=== PATIENT | female | born 1945 | race Caucasian/White ===

== ENCOUNTER → 2017-02-08 | Outpatient (CLI) | payer OTHER ==
--- NOTE | 2017-02-09 09:33 | RAD ---
EXAM DESCRIPTION: Knee,Left Complete CLINICAL HISTORY: 71 years, Female, KNEE PAIN COMPARISON: None. FINDINGS: No fracture or dislocation. Near complete loss of the patellofemoral joint space with lateral spurring. Moderately severe narrowing laterally with spurring and slight lateral subluxation. Medial compartment shows slight narrowing. No clearly seen joint effusion. Prepatellar soft tissue swelling IMPRESSION: No fracture or dislocation. Advanced arthritic change particularly patellofemoral joint space and laterally Electronically signed by: Mikal Oneill MD 02/09/2017 9:33 AM CDT
== END | disposition home or self-care (01) ==
LOC: RAD 09:59
PROVIDERS: ATTEND Orthopaedic Surgery
DX: M25.562 Pain in left knee (principal); M25.561 Pain in right knee; M25.551 Pain in right hip; M25.552 Pain in left hip

== ENCOUNTER → 2017-02-23 | Outpatient (CLI) | payer OTHER ==
--- NOTE | 2017-02-24 09:42 | MRI ---
EXAM DESCRIPTION: MR KNEE WITHOUT IV CONTRAST CLINICAL HISTORY: Right knee pain TECHNIQUE: Multiplanar, multisequence MR images of the right knee were obtained. FINDINGS: ACL and PCL are intact. Oblique undersurface tear of the posterior horn of the medial meniscus, best seen on sagittal images seven and eight. There is also a macerated multidirectional tear of the body of the medial meniscus with mild meniscal extrusion. There is marked bone marrow edema seen throughout the medial femoral condyle with mild subchondral edema also noted within the peripheral medial tibial plateau. There is a small region of subchondral sclerosis measuring 1.0 x 0.4 cm on coronal image 16. This is compatible with a small region of osteochondral insufficiency fracture versus osteonecrosis. Overlying cartilage demonstrates moderate grade cartilage loss, predominantly on image 18 and 17. There is myxoid degeneration of the anterior horn of the lateral meniscus without discrete tear. There is mild cartilage heterogeneity and fibrillation in the lateral compartment without full-thickness defect. Lateral collateral ligamentous complex is intact. Patellofemoral extensor mechanism is unremarkable. Patchy regions of subchondral cystic change and edema seen within the central lateral patellar facet, patellar apex, and medial patellar facet compatible full-thickness chondrosis. Trochlear cartilage is preserved. Small joint effusion with decompressing Bakers cyst. There is also diffuse periarticular edema about the joint capsule yet no synovitis or evidence of capsulitis. Bone marrow is otherwise unremarkable. IMPRESSION: 1. Complex, multidirectional tear of the posterior horn and body of the medial meniscus with resultant moderate grade chondrosis in the medial compartment. There is a small stable osteochondral lesion within the weightbearing medial tibial plateau without cortical depression or fluid cleft to suggest instability. 2. 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 3. 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 4. Periarticular edema with small joint effusion and decompressing small Albright's cyst. Electronically signed by: Kevin Ling MD 02/24/2017 9:41 AM CDT
== END | disposition home or self-care (01) ==
LOC: MRI 09:17
PROVIDERS: ATTEND Family Medicine
DX: M25.561 Pain in right knee (principal)

== ENCOUNTER → 2017-07-31 | Outpatient (CLI) | payer OTHER | END | disposition home or self-care (01) | LOC: GMAH 10:25 | PROVIDERS: ATTEND Family Medicine | DX: E78.2 Mixed hyperlipidemia (principal) ==

== ENCOUNTER → 2017-08-02 | Outpatient (CLI) | payer OTHER ==
--- NOTE | 2017-08-06 14:19 | MAM ---
EXAM DESCRIPTION: 3D Screening BILATERAL : Digital Mammography. CLINICAL HISTORY: 72 years Female SCREENING . No complaints. No family history of breast cancer. Postmenopausal. No HRT. COMPARISON: 2-D digital screening bilateral study 06/20/2016 and 12/10/2009. Report from prior examination also reviewed. TECHNIQUE: Bilateral CC and MLO projection full-field images, 3-D tomosynthesis digital mammographic technique. Also bilateral synthesized CC/ MLO full-field images. CAD not utilized. FINDINGS: The breast parenchymal density pattern is: Scattered areas of fibroglandular density. No skin thickening or nipple retraction . Right axillary lymph node. Bilateral vascular calcifications. Bilateral solitary microcalcifications. No focal, stellate mass or density, focal asymmetry , and no suspicious microcalcifications laterally. Stable mammograms compared to prior studies, taking into account differences in mammographic technique IMPRESSION: BI-RADS CATEGORY: 2 - BENIGN FINDINGS. FOLLOW UP: Routine digital bilateral screening, one year interval from July 2017. Written communication explaining the IMPRESSION and follow-up, will be mailed to the patient and referring health care provider. According to the [employer], yearly mammograms are recommended starting at age 40 and continuing as long as a woman is in good health. Any breast change noted on a breast self-exam should be reported promptly to the patient's healthcare provider. Breast MRI is recommended for women with an approximately 20-25% or greater lifetime risk of breast cancer, including women with a strong family history of breast or ovarian cancer and women who have been treated for Hodgkin's disease. A negative mammographic report should not delay tissue diagnosis in patients with significant clinical history or physical findings. Extremely dense breast tissue limits the sensitivity of digital mammography. Electronically signed by: Israel Milton MD 08/06/2017 2:18 PM CDT
== END | disposition home or self-care (01) ==
LOC: MAMMO 14:53
PROVIDERS: ATTEND Family Medicine
DX: Z12.31 Encounter for screening mammogram for malignant neoplasm of breast (principal)
CPT/HCPCS: 77063; G0202

== ENCOUNTER → 2017-08-03 | Outpatient (CLI) | payer OTHER | END | disposition home or self-care (01) | LOC: GMAH 12:48 | PROVIDERS: ATTEND Family Medicine | DX: N30.00 Acute cystitis without hematuria (principal) ==

== ENCOUNTER → 2018-01-15 | Outpatient (CLI) | payer OTHER ==
--- NOTE | 2018-01-15 17:07 | CT ---
EXAM DESCRIPTION: Abdoment/Pelvis w/o Contrast: Computed Tomography. CLINICAL HISTORY: SLOW TRANSIT CONSTIPATION COMPARISON: None. TECHNIQUE: Spiral-axial scans at i.0 mm intervals through the abdomen and pelvis, without nonionic IV contrast. No oral contrast. Coronal and sagittal 2.0 mm reconstructions. No delayed scans. Total Exam DLP: 50 mGy-cm. This exam was performed according to our departmental dose-optimization program which includes automated exposure control, adjustment of the mA and/or kV according to patient size and/or use of iterative reconstruction technique; to reduce radiation dose to as low as reasonably achievable (ALARA). FINDINGS: Lung bases and pleura: Negative. Liver, Stomach, Spleen, Adrenal Glands: Calcification in the subcapsular posterior right hepatic lobe. Long axis of the right lobe is 19.4 cm. Splenic calcifications. Stomach is negative. 2 x 3 cm mass left adrenal gland. Hounsfield density +24. Normal size right adrenal gland. Pancreas, Gallbladder, Ducts: Vascular calcifications abutting the pancreas. Multiple rim calcified stones in the gallbladder the largest approximately 3 cm in diameter. Common bile duct nondilated. Kidneys and Ureters: 2 cm round low-density object with well-demarcated borders and Hounsfield density +2 1 most likely a cyst. Also a 1 cm juxta cortical cyst posterior Hounsfield density +10. Right kidney unremarkable except for possible subcentimeter cyst mid lateral cortex. No radiodense stones or hydronephrosis. Mesentery: No stranding fascial thickening or free intraperitoneal air. No ascites. Aorta: Moderate calcification and calcification of the ostia of major branch vessels. Normal caliber of the outer Wall. Small Bowel: Unremarkable. Terminal Ileum/Cecum: Normal caliber. Normal caliber of the appendix. Normal density of the surrounding fat. Colon: Minimal gas throughout scattered with fecal material. Moderate redundancy of the sigmoid colon. No complications. Pelvic Organs: Vaginal cuff is unremarkable. No free fluid. 2 radiodense objects in a soft tissue structure in the right adnexa measuring 4.1 x 1.6 x 1.5 cm may represent ovarian calcifications versus calcifications within scar tissue. Anterior to the right ureter. Left ovary is not seen. No fluid in the cul-de-sac. No radiodense stones in the urinary bladder. Spine and Bony Pelvis: Spondylosis in the included thoracic spine and lower lumbar spine with possible bilateral foraminal stenosis at L5-S1. Abdominal Wall/Back Soft Tissues: Bilateral subcutaneous densities possibly injection sites which appear symmetric in the anterior paramedian soft tissue at the level of the hands. Above the umbilicus. Small bilateral fatty inguinal hernias not containing bowel. IMPRESSION: 1. No significant fecal obstipation of the colon or distention. 2. Left adrenal gland mass with soft tissue density. Consider IV postcontrast CT imaging with delayed views to evaluate. 3. Multiple rim calcified stones in the gallbladder with no wall thickening or surrounding fatty density or fluid. Cholelithiasis. No definite common bile duct dilation. Hepatomegaly. Pancreas unremarkable. No ascites. 4. Bilateral renal cysts. 5. Right adnexal mass with well-defined borders containing 2 well-defined calcifications and no fluid collection or abnormal surrounding fatty density. This could represent ovarian tissue. No fluid in the cul-de-sac. Left ovary not seen. Prior hysterectomy. Consider pelvic ultrasound if clinically significant. 6.Thoracic and lumbar spondylosis. Bilateral significant foraminal narrowing at L5-S1. Correlate for bilateral L5 radiculopathy. Electronically signed by: Israel Milton MD 01/15/2018 5:05 PM CDT
== END | disposition home or self-care (01) ==
LOC: CT 09:06
PROVIDERS: ATTEND Family Medicine
DX: K59.01 Slow transit constipation (principal)

== ENCOUNTER → 2018-01-21 | Outpatient (CLI) | payer OTHER ==
--- NOTE | 2018-01-22 11:26 | US ---
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 The uterus is not seen, evidently surgically absent Right ovary measures 2.7 x 2.5 x 2.2 cm. Echogenic foci in the right ovary are consistent with coarse calcifications. Previous CT showed the appearance of well formed teeth in small ovarian dermoid without significant cystic or fatty components. Left ovary is not identified on sonography although fairly prominent on the previous CT. There is no other adnexal mass or free pelvic fluid. Bowel loops are unremarkable. IMPRESSION: Nonvisualized left ovary. Surgically absent uterus Calcifications in the right ovary. See above. Electronically signed by: Familia Frey MD 01/22/2018 11:24 AM CDT
--- NOTE | 2018-01-22 11:27 | CT ---
EXAM DESCRIPTION: CT ABDOMEN AND PELVIS WITH CONTRAST CLINICAL HISTORY: ABN FINDINGS ON DIAGNOSTIC IMAGING OF OTHER ABDOMINAL REGIONS COMPARISON: CT abdomen and pelvis without contrast January 15, 2018 TECHNIQUE: CT of the abdomen and pelvis are performed during IV bolus administration of 100 mL of Isovue 300. Oral contrast media is administered as well. FINDINGS: In the lower chest, the lung bases are clear. Heart size is normal. CT abdomen Gallstones are noted in the gallbladder as previously reported January 15, 2018. No inflammatory changes to suggest acute cholecystitis. Left adrenal lesion may be lipid poor adenoma unchanged in size at 2.2 cm. Small cyst in the body of the pancreas measures 1.2 cm unchanged from previous study. This is much more easily visualized with IV contrast than it was on the previous study without IV contrast. This appears benign and could be followed. Mild bilateral renal scarring is noted with small bilateral renal cysts. The liver, spleen, right adrenal gland, stomach and kidneys are otherwise unremarkable in appearance. No inflammation around the pancreas. No renal stones or hydronephrosis. No bowel dilatation to suggest obstruction. Density in the anterior abdominal wall may be related to multiple previous injection sites or previous surgery. This appears unchanged. No free air or free fluid. CT pelvis Question visualization of a very small appendix or appendiceal stump (axial image 60, series 2). No inflammation around the cecum or terminal ileum or sigmoid colon. Bladder and distal ureters are negative for stones. Normal enhancement of pelvic vessels. No inguinal or lower pelvic adenopathy. Uterus is surgically absent. Left ovary appears normal measuring 2.8 cm in greatest dimension. In the right ovary, 2 ringlike calcifications are seen consistent with well formed teeth in a small dermoid. Right ovary including calcifications measures 3.8 cm in greatest dimension. Bone window images are negative for fracture or lytic lesion. Degenerative changes are prominent in the lower lumbar spine. Delayed images show positive contrast accumulation in the urinary collecting systems. On delayed images, 50% washout of the left adrenal lesion is seen which is equivocal and could represent a lipid poor adenoma. (Greater than 60% washout is considered diagnostic of lipid poor adenoma.) Coronal and sagittal reformatted images confirm the findings. IMPRESSION: Small cyst in the body of the pancreas, most likely benign. Consider 6 month follow-up. Gallstones without other changes to suggest acute cholecystitis. Left adrenal lesion with findings suggesting lipid poor adenoma. Calcifications in the right ovary, most likely ovarian dermoid of small size. Normal CT appearance of left ovary. Surgically absent uterus. This exam was performed according to our departmental dose-optimization program, which includes automated exposure control, adjustment of the mA and/or kV according to patient size and/or use of iterative reconstruction technique. Total DLP equals 1971.62 mGycm. Electronically signed by: Familia Frey MD 01/22/2018 11:26 AM CDT
== END ==
LOC: CT 14:32
PROVIDERS: ATTEND Family Medicine
DX: R93.5 Abnormal findings on diagnostic imaging of other abdominal regions, including retroperitoneum (principal); D39.10 Neoplasm of uncertain behavior of unspecified ovary; K80.80 Other cholelithiasis without obstruction; K86.2 Cyst of pancreas

== ENCOUNTER → 2018-08-22 | Outpatient (CLI) | payer OTHER | LOC: GMAH 14:32 | PROVIDERS: ATTEND Family Medicine | DX: I10 Essential (primary) hypertension (principal) ==

== ENCOUNTER 2020-05-10 15:57 | Inpatient (IN) | payer OTHER ==
[2020-05-10] MEDS ORDERED: ONDANSETRON INJ 4 MG/2 ML VIAL IV ONE ×2 (16:07→20:02)
[2020-05-10] MEDS ORDERED: SODIUM CHLORIDE 0.9% 1000ML 1,000 ML IVS ONE ×3 (16:07→19:43)
--- NOTE | 2020-05-10 16:08 | ED.PDOC ---
History of Present Illness - General Time Seen by Provider: 05/10/20 16:06 Source: patient, family - History of Present Illness Initial Comments: 74-year-old female with past medical history of diabetes, asthma, history of CVA who is brought in by daughter for chief complaint of vomiting and diarrhea. Onset of illness 2 days ago and worsening last night. Reports approximately 10 episodes of dark/green emesis in the past 48 hours as well as 3-4 episodes of watery diarrhea since last night. Also reports very poor appetite and p.o. intake as well as generalized weakness. Unsure if she is having any fevers. Denies any abdominal pain. Does report some pain in her upper back for the past couple of days. Reports chronic cough productive for phlegm, largely unchanged from usual. Denies chest pain, dyspnea, sore throat, urinary symptoms, leg sw elling. She also reports that her blood sugar has been elevated today, most recent check was 384 this afternoon. She states she usually takes 80 units of insulin per day. States she took 40 units this morning and another 20 units this afternoon. PCP is Dr. Jernigan. Allergies/Adverse Reactions: Allergies NO KNOWN ALLERGY Allergy (Verified 05/10/20 16:27) Home Medications: Ambulatory Orders Albuterol Sulfate [Proair Hfa] 90 mcg IN Q4HR PRN 05/10/20 Allopurinol 300 mg PO DAILY 05/10/20 Atorvastatin Calcium [Lipitor] 20 mg PO DAILY 05/10/20 Fluticasone Furoate-Vilanterol [Breo Ellipta 100-25 Mcg/INH] 1 inh INH DAILY 05/10/20 Furosemide [Lasix] 40 mg PO QAM 05/10/20 Insulin Degludec [Tresiba Flextouch] 80 units SUBCU DAILY 05/10/20 Montelukast [Singulair] 10 mg PO DAILY 05/10/20 Quinapril HCl 60 mg PO DAILY 05/10/20 Semaglutide [Ozempic] 2 mg SC 05/10/20 Review of Systems - Review of Systems Review of Systems: 05/10/20 16:20 as per HPI All other Systems: Reviewed and Negative Family Medical History - Family History Mother Family History: Unknown Physical Exam - Physical Exam General Appearance: Alert, No apparent distress, Ill Appearing Eye Exam: bilateral normal Ears, Nose, Throat: hearing grossly normal, normal ENT inspection, normal pharynx Neck: non-tender, full range of motion, supple, normal inspection Respiratory: chest non-tender, no accessory muscle use, other - Slightly diminished breath sounds throughout without wheezes or rhonchi. Faint rales noted bilateral lung bases. Cardiovascular/Chest: normal peripheral pulses, no edema, no gallop, no JVD, no murmur, tachycardia Peripheral Pulses: radial,right: 2+, radial,left: 2+ Gastrointestinal/Abdominal: normal bowel sounds, soft, no organomegaly, tenderness - Moderate tenderness to palpation to right upper quadrant without guarding or rebound Back Exam: normal inspection, no CVA tenderness, no vertebral tenderness Extremity: normal range of motion, no calf tenderness, normal capillary refill, other - Right dorsal forearm with scattered ecchymoses and mild tenderness to pa lpation without gross deformity Neurologic: geological technical officer II-XII nml as tested, no motor/sensory deficits, alert, normal mood/affect, oriented x 3 Skin Exam: normal color, warm/dry Progress - Progress Progress: 05/10/20 16:22 Nausea, vomiting, diarrhea -Consider sepsis, acute gastroenteritis/colitis, acute pancreatitis, ischemic colitis, diverticulitis, acute cholecystitis, COVID-19, strep, UTI, hyperglycemia, metabolic derangement, other -Patient with tachycardia and hypertension on arrival, temperature 99.3 F -Obtain sepsis work-up, abdominal work-up, cardiac work-up -Place peripheral IV, 1 L normal saline bolus, Zofran 4 mg IV 05/10/20 17:14 -Patient still with tachycardia, and otherwise remains stable. Her labs are concerning for lactic acid level of 3.3, WBC 10,500 with 90% segs and no bands. Serum glucose level is 459. Anion gap is 12. K 3.3 (replenished orally with 40 mEq KCl). CXR findings are concerning for metastic cancer to the chest given significant L perihilar adenopathy, R hilar mass and question of R lower lung field large mass vs infiltrate. -will give another 1 L NS bolus and plan for CT imaging of the chest/abdomen/pelvis with IV contrast for further evaluation. Plan to begin early broad-spectrum IV Abx once CT scans done and will repeat lactic acid level. 05/10/20 19:14 -CT imaging of the chest reveals bilateral upper lobe patchy infiltrates to right lower lobe consolidative infiltrate consistent with multifocal pneumonia. There is evidence of old granulomatous disease. There is no remarks of findings of cancer per radiology read. CT imaging of the abdomen and pelvis reveals no acute processes. There is note made of a very large gallstone in the gallbladder but there is no acute processes noted of the gallbladder. I have spoken with Danny Salvador, hospitalist, regarding admission for sepsis and pneumonia. He requests surgical consultation prior to admit to make sure there was nothing possibly acute with the gallbladder/biliary tree that might need to be addressed. Awaiting Dr. Levy to come to the ED currently. -Pt is on 3rd NS bolus. She has received Zosyn 3.375 g IV. She remains tachycardic but BP and other vitals remain stable. Given multifocal PNA in setting of recent frequent vomiting, concern for possible aspiration PNA. Thus, will add Flagyl 500 mg IV in the ED while awaiting surgical consultation. Lactate has improved from 3.3 to 2.7. 05/10/20 22:05 -Dr. Levy states since pt is without active abdominal pain, he is happy to see her as consultation and she can be admitted to the hospital for her other active issues. Danny Salvador notified who accepts for admission. Reji Monge MD Billing #[id number] 05/10/20 16:06 Sodium Chloride 0.9% (Flush) [Saline Flush Syringe] 10 ml IV PRN PRN 05/10/20 16:07 IV Care:Saline Lock per Protoc QSHIFT URINALYSIS Stat 05/10/20 16:15 EKG STAT 05/10/20 16:38 BLOOD CULTURE Stat RESPIRATORY PANEL 2 Stat 05/10/20 16:54 Sodium Chloride 0.9% 1000ML [Ns 1000 ml] 1,000 ml IVS ONCE 05/10/20 16:55 Abdomen/Pelvis w/Contrast [CT] Stat 05/10/20 16:56 Hold Metformin x 48Hrs [id number] 05/10/20 17:02 Chest w/Contrast [CT] Stat Laboratory Results - last 24 hr 05/10/20 05/10/20 05/10/20 16:20 16:20 16:20 WBC 10.5 RBC 4.88 Hgb 13.0 Hct 39.0 MCV 80.0 L MCH 26.7 L MCHC 33.3 RDW 14.0 Plt Count 202 MPV 8.1 Absolute Neuts (auto) 9.40 H Absolute Lymphs (auto) 0.40 L Absolute Monos (auto) 0.70 Absolute Eos (auto) 0.00 Absolute Basos (auto) 0.00 Neutrophils % 89.7 H Lymphocytes % 3.8 L Monocytes % 6.3 Eosinophils % 0.1 L Basophils % 0.1 Sodium 131 L Potassium 3.3 L Chloride 96 L Carbon Dioxide 23 Anion Gap 15.3 BUN 26 H Creatinine 1.06 BUN/Creatinine Ratio 24.5 H POC Glucose > 400 H* Random Glucose 459 H* Serum Osmolality 287.4 Lactic Acid Calcium 9.0 Total Bilirubin 1.0 Direct Bilirubin 0.2 Indirect Bilirubin 0.8 AST 21 ALT 21 Alkaline Phosphatase 104 Serum Total Protein 7.2 Albumin 3.1 L Amylase 21 L Lipase 22 Group A Strep Rapid 05/10/20 05/10/20 05/10/20 16:20 16:29 16:38 WBC RBC Hgb Hct MCV MCH MCHC RDW Plt Count MPV Absolute Neuts (auto) Absolute Lymphs (auto) Absolute Monos (auto) Absolute Eos (auto) Absolute Basos (auto) Neutrophils % Lymphocytes % Monocytes % Eosinophils % Basophils % Sodium Potassium Chloride Carbon Dioxide Anion Gap BUN Creatinine BUN/Creatinine Ratio POC Glucose Random Glucose Cancelled Serum Osmolality Lactic Acid 3.3 H* Calcium Total Bilirubin Direct Bilirubin Indirect Bilirubin AST ALT Alkaline Phosphatase Serum Total Protein Albumin Amylase Lipase Group A Strep Rapid Positive H - EKG/XRAY/CT EKG: Sinus, Tachy - HR 110, no ST elevs noted, q waves in anteroseptal and inferior leads likely indicative of prior AL vs repol abnormality, left axis deviation, intervals normal, no prior EKG for comparison XRAY: chest - Per my read it appears to be possibly MS versus infiltrate in the right lower. Patient also has a 2 cm nodule in the right perihilar region and left perihilar fullness lymphadenopathy noted. Findings are concerning for metastatic cancer to the chest. - Additional EKG/XRAY/Consults XRAY #2: forearm - Right -no acute processes noted XRAY #3: R humerus - No acute processes noted Departure - Departure Clinical Impression: Nausea vomiting and diarrhea, Strep pharyngitis Pneumonia Qualifiers: Pneumonia type: due to unspecified organism Laterality: bilateral Lung location: unspecified part of lung Qualified Code(s): J18.9 - Pneumonia, unspecified organism Hyperglycemia due to type 2 diabetes mellitus Qualifiers: Diabetes mellitus halfway insulin use: with truck terminal manager use Qualified Code(s): E11.65 - Type 2 diabetes mellitus with hyperglycemia Sepsis Qualifiers: Sepsis type: sepsis due to unspecified organism Sepsis acute organ dysfunction status: without acute organ dysfunction Qualified Code(s): A41.9 - Sepsis, unspecified organism Time of Disposition: 22:05 Disposition: Discharge to Home or Self Care Condition: Poor Home Medications: Ambulatory Orders Albuterol Sulfate [Proair Hfa] 90 mcg IN Q4HR PRN 05/10/20 Allopurinol 300 mg PO DAILY 05/10/20 Atorvastatin Calcium [Lipitor] 20 mg PO DAILY 05/10/20 Fluticasone Furoate-Vilanterol [Breo Ellipta 100-25 Mcg/INH] 1 inh INH DAILY 05/10/20 Furosemide [Lasix] 40 mg PO QAM 05/10/20 Insulin Degludec [Tresiba Flextouch] 80 units SUBCU DAILY 05/10/20 Montelukast [Singulair] 10 mg PO DAILY 05/10/20 Quinapril HCl 60 mg PO DAILY 05/10/20 Semaglutide [Ozempic] 2 mg SC 05/10/20 Decision To Admit - Decistion To Admit Decision to Admit Reason: Admit from ER Decision to Admit Date: 05/10/20 Decision to Admit Time: 22:05
--- NOTE | 2020-05-10 16:45 | RAD ---
EXAM DESCRIPTION: Forearm,Right CLINICAL HISTORY: GLF 1 day ago, R forearm pain COMPARISON: None. TECHNIQUE: 2 views right FINDINGS: Calcification of the triangular fibrocartilage is observed in the wrist. Intracarpal arthritis and carpal metacarpal arthritis in the first digit is also observed. Ulnar and radial artery calcification is observed. No fracture is seen. IMPRESSION: Degenerative changes are observed in the wrists. No fracturing is detected. Electronically signed by: Eliot Chambers MD 05/10/2020 4:43 PM CDT
--- NOTE | 2020-05-10 16:48 | RAD ---
EXAM DESCRIPTION: Humerus,Right CLINICAL HISTORY: GLF 1 day ago, R upper arm pain COMPARISON: None. TECHNIQUE: 2 views right. FINDINGS: Mild degenerative changes are observed in the glenohumeral articulation. No evidence of a fracture is seen. IMPRESSION: Degenerative changes are observed in the shoulder. No fracturing is detected. Electronically signed by: Eliot Chambers MD 05/10/2020 4:46 PM CDT
--- NOTE | 2020-05-10 16:56 | RAD ---
EXAM DESCRIPTION: Chest,1 View CLINICAL HISTORY: cough, fevers COMPARISON: 23 November 2016 TECHNIQUE: AP portable chest FINDINGS: Exam demonstrates evidence of left hilar adenopathy. A nodule is observed in the right perihilar region measuring 2.13 cm in diameter. Infiltrate/mass is observed in the right lung base no pleural fluid is identified. The heart is within range of normal. Mild degenerative changes are observed in the shoulders. IMPRESSION: The exam demonstrates evidence consistent with metastatic neoplasm to the chest. Further evaluation with chest CT should be considered. Electronically signed by: Eliot Chambers MD 05/10/2020 4:54 PM CDT
[2020-05-10] MEDS ORDERED: POTASSIUM CHLORIDE 20 MEQ TAB PO ONE (17:02)
[2020-05-10] MEDS: SODIUM CHLORIDE 0.9% (FLUSH) 10 ML SYG IV PRN (17:19)
[2020-05-10] MEDS ORDERED: PIPERACILLIN/TAZOBACTAM 3.375 GM in SODIUM CHLORIDE 0.9% 100ML 100 ML IVPB ONE (18:24)
--- NOTE | 2020-05-10 18:31 | CT ---
PROCEDURE: CT Abdomen/Pelvis w/Contrast (accession [id number]), CT Chest w/Contrast (accession [id number]) CLINICAL HISTORY: 74 years Female sepsis, vomiting, diarrhea TECHNIQUE: Contiguous axial images obtained through the chest, abdomen, and pelvis after IV contrast administration. There is a trace amount of oral contrast in the esophagus and stomach only. Coronal and sagittal reformatted images provided. This CT exam was performed according to our departmental dose-optimization program, which includes one or more of the following dose reduction techniques: automated exposure control, adjustment of the mA and/or kV according to patient size, and/or use of iterative reconstruction technique. COMPARISON: Prior CT scan of the abdomen and pelvis dated 01/21/2018 FINDINGS: There are patchy airspace infiltrates in the perihilar upper lobes bilaterally, with groundglass opacities and air bronchograms on the left. There are confluent airspace infiltrates in the right lower lobe. Mild diffuse bronchial wall thickening. No pleural effusion or pneumothorax. Mild, likely reactive diffuse mediastinal lymphadenopathy. The heart is normal in size without pericardial effusion. There is diffuse atherosclerosis without thoracic aortic aneurysm or dissection. Evidence of prior granulomatous disease in the chest. Ankylosis of the thoracic spine without acute fracture or aggressive osseous lesion. Again seen are prominent gallstones in the gallbladder fundus without definite pericholecystic inflammation or gallbladder wall thickening. No biliary dilatation 1.4 cm low-attenuation focus in the body of the pancreas is stable in size as compared to the prior exam. No pancreatic inflammation or other pancreatic lesion. Stable indeterminate 2.1 cm left adrenal nodule. The liver, spleen, right adrenal gland, and urinary bladder are normal. Bilateral renal cysts without hydronephrosis or pyelonephritis. Prior hysterectomy. Stable appearance of the ovaries. There is no bowel inflammation, obstruction, free intraperitoneal air, or ascites. The appendix is normal. Atherosclerosis without abdominal aortic aneurysm or retroperitoneal hemorrhage. Likely injection-related granulation tissue in the subcutaneous fat over the lower abdomen bilaterally. Chronic degenerative changes in the visualized spine. IMPRESSION: Patchy airspace infiltrates in both upper lobes with confluent airspace infiltrates in the right lower lobe, likely infectious. Mild bronchitis. Likely reactive mediastinal lymphadenopathy. Cholelithiasis without cholecystitis. Stable indeterminate pancreatic and left adrenal lesions. No acute findings in the chest, abdomen, or pelvis. Electronically signed by: Su Gonzáles MD 05/10/2020 6:29 PM CDT
[2020-05-10] MEDS ORDERED: MORPHINE SULFATE INJ 10 MG/ML VIAL IV ONE (20:02)
[2020-05-10] MEDS ORDERED: metroNIDAZOLE IV PREMIX 500MG 500 MG in PREMIX BAG 1 BAG IVPB ONE (20:52)
[2020-05-10] MEDS ORDERED: GLUCAGON INJ 1 MG VIAL SUBCU PRN ×2 (22:11→22:32)
[2020-05-10] MEDS ORDERED: SODIUM CHLORIDE 0.9% (FLUSH) 10 ML SYG IV PRN ×2 (22:11→22:32)
[2020-05-10] MEDS ORDERED: DEXTROSE 50% 25 GM/50 ML SYG IV PRN ×2 (22:11→22:32)
[2020-05-10] MEDS ORDERED: ALBUTEROL SULFATE 2.5 MG/3 ML VIAL NEB PRN ×2 (22:11→22:32)
[2020-05-10] MEDS ORDERED: ONDANSETRON INJ 4 MG/2 ML VIAL IV PRN ×2 (22:11→22:32)
[2020-05-10] MEDS ORDERED: ACETAMINOPHEN 325 MG TAB PO PRN ×2 (22:11→22:32)
[2020-05-10] MEDS ORDERED: INSULIN DETEMIR 100 UNITS/ML PEN SUBCU ONE ×2 (22:16)
[2020-05-10] MEDS ORDERED: AMPICILLIN & SULBACTAM SODIUM 3 GM in SODIUM CHL 0.9% 100ML MINI-BAG 100 ML IVPB SCH (22:30)
[2020-05-10] MEDS ORDERED: IV SET AND CAP CHANGE INJ INJ SCH (22:30)
--- NOTE | 2020-05-10 22:32 | HP ---
SUPERVISING PHYSICIAN: Joni Song M.D. CHIEF COMPLAINT: Vomiting and diarrhea. HISTORY OF PRESENT ILLNESS: Ms. Rice is a74 year-old female patient that presented to the Emergency Room last night with a past medical history of diabetes, asthma and a previous cerebrovascular accident. She was brought to the Emergency Room by her daughter who endorses that she has been having some nausea and vomiting for the last 2 days which worsened acutely last night. She has reported that she actually has had 10 episodes of dark to green emesis over the last 48 hours as well as 3 or 4 episodes of watery type diarrhea. She is also endorsing that she has had a very poor appetite and overall poor intake with generalized weakness. She denies any actual fevers or abdominal pain. She is endorsing that she has had a chronic cough that is productive with some green sputum over the last several weeks, but denied any sore throat or nasal congestion. She is diabetic and notes that her blood sugars have been elevated in the last 24 to 48 hours with the last one before she came into the Emergency Room around 384. She normally takes around 80 units of insulin a day and actually took 40 units in the morning and 20 units before she presented to the Emergency Room. Laboratory studies showed she had a white count of 10,400 with a left shift. Chemistries showed a blood sugar of 459 with sodium 131 corrected to 135 with potassium 3.3. Anion gap was normal at 15, creatinine normal at 1.0. Initial lactic acid was elevated at 3.3. She was given fluids and a repeat of that showed that it was responding to treatment and was down to 2.7 two hours post treatment. Liver functions were all within normal limits as well as lipase and amylase. Urinalysis showed initially 5 to 10 RBCs, with 3 to 5 WBCs, rare bacteria. On dipstick revealed a small amount of blood,, 500 glucose, 100 protein but negative ketones. She did have a Group A Strep that was positive. Her respiratory panel showed that all viral and bacterial targets tested were not detected, including COVID-19. Her vital signs on admission to the Emergency Room showed that she was actually hypertensive with a blood pressure of 217/92, heart rate 117, low grade temperature 99, satting 92% initially on room air. She was given fluids for initial treatment course and did show desaturation acutely into the mid 80s requiring placement on O2 with nasal cannula. A chest x-ray was completed with questionable evidence consisting of metastatic neoplasm of the chest. This was then followed-up with a CT of the abdomen as well as pelvis and chest, and on the radiology report the radiologist notes patchy airspace infiltrates in both upper lobes and confluent airspace infiltrates in the right lower lobe, likely infectious with some mild bronchitis. There was note of cholelithiasis but no acute cholecystitis. Also of note after interviewing the patient, the patient had sustained a fall at home and x-rays were done of her right humerus and forearm, all without any acute findings of a fracture or dislocation. Given the concerns for developing pneumonia, the patient is going to be admitted for treatment of community acquired pneumonia. Although her COVID testing is negative, additional testing was completed after admission as the patient clinically had clinical signs of possible COVID infection with her coagulation studies showing an elevated D- dimer at 1730, fibrinogen at 759 with a C reactive protein of 16.5. Cardiac enzymes were showing negative for troponin as well as CPK within normal limits. She is now going to be admitted for initiation of treatment of concern for questionable COVID pneumonia. She was admitted in stable condition into airborne isolation on the COVID floor. PAST MEDICAL HISTORY: 1. Hyperlipidemia. 2. Hypertension. 3. Asthma. 4. Type 2 diabetes. PAST SURGICAL HISTORY: 1. Bilateral cataract removal. 2. Hysterectomy. HOME MEDICATIONS: 1. Breo ellipta 1 inhaled daily. 2. Albuterol handheld inhaler 90 mcg inhaled every 4 hours as needed. 3. Quinapril 60 mg daily. 4. Singulair 10 mg daily. 5. Lasix 40 mg daily. 6. Allopurinol 300 mg daily. 7. Lipitor 20 mg daily. 8. Tresiba 80 units daily. 9. Ozempic 2 mg subcue weekly. ALLERGIES: NO KNOWN DRUG ALLERGIES. FAMILY HISTORY: Positive for hyperlipidemia, cerebrovascular accidents and type 2 diabetes mellitus. SOCIAL HISTORY: The patient is . She lives in [place] by herself as well as is checked on by her son. She is retired. Denies ever utilizing tobacco, alcohol or illicit drugs. REVIEW OF SYSTEMS: CONSTITUTIONAL: Positive for general malaise, weakness as noted in History of Present Illness. HEENT: Positive for some nasal congestion. Negative for sore throats, earaches, vision changes or headaches, neck pain. RESPIRATORY: As noted in History of Present Illness, productive cough with increasing shortness of breath. CARDIOVASCULAR: Denies any chest pains, palpitations, syncopal episodes or tachycardia. GASTROINTESTINAL: Denies any nausea, vomiting, diarrhea or constipation. GENITOURINARY: Denies any dysuria, hematuria, polyuria. MUSCULOSKELETAL: Generalized weakness with a reported fall as noted in History of Present Illness. NEUROLOGIC: Denies any ataxia, seizures, focal motor deficits, syncopal episodes. Did sustain a same level fall due to weakness as noted in History of Present Illness. SKIN: Without any reported lesions, rashes, moles or unexplained changes. HEMATOLOGIC: Denies any unexplained bleeding, bruising or transfusion reactions. PHYSICAL EXAMINATION: VITAL SIGNS: Initially in the Emergency Room showed temperature 99, pulse 117, blood pressure 217/93, respirations 20, satting 93% on room air. After initiation of treatment she did show acute desaturation into the high 80s on room air requiring supplemental oxygen, satting 96% on 2 liters nasal cannula. After admission to the Medical/Surgical floor she was showing temperature 99.3, blood pressure 90/54, respirations 16, satting 96% on 2 liters nasal cannula. GENERAL: The patient does look frail and very ill. Does not appear to be in any acute distress. She does look fatigued. HEENT: Tympanic membranes clear bilaterally. Oropharynx is pink, moist without any lesions. NECK: Supple, nontender with full range of motion. CHEST: Lung sounds were diminished throughout with some rales noted on bilateral lung bases, more prominent on the right than the left. No appreciable wheezing. HEART: Regular rate and rhythm without any appreciable murmurs, gallops, or rubs. ABDOMEN: Soft, nontender. Positive bowel sounds. There was reported tenderness to palpation on the right on initial exam in the Emergency Room, but on my exam the patient demonstrated no tenderness to the right upper quadrant. No rebound tenderness. BACK: Without any CVA or vertebral tenderness. EXTREMITIES: Multiple areas of ecchymosis and bruising to the right forearm. No obvious deformity. Lower extremities were without any edema. NEUROLOGIC: Cranial nerves II-XII are grossly intact. Facial features are symmetrical. Extraocular movements are within normal limits. There is no nystagmus noted. She is alert and oriented times three. SKIN: Warm, pink and dry. LABORATORY: CBC on admission showed white count 10,500, hemoglobin 13, hematocrit 39.0, platelet count 202,000. Differential did show a left shift. Coagulation studies showed a PTT of 29, fibrinogen of 759 and a D-dimer of 1730. Chemistries showed sodium 131 but corrected for a glucose of 459 to 134. Potassium 3.3, BUN 26, creatinine 1.06. Liver functions were all within normal limits. Troponin was 0.02. Initial lactic acid was 3.3. After fluids and on admission to the Medical/Surgical floor, lactic acid normalized to 1.5. Magnesium was low at 1.6. Amylase and lipase were both normal. Urinalysis after Castro catheter placed showed 100 of protein, 500 glucose, small amount of blood. Microscopic revealed 3 to 5 RBCs, no WBCs, 1 to 3 epithelials, 1+ amorphous, no bacteria. Group A Strep was positive. MICROBIOLOGY: Blood cultures are pending. Respiratory panel showed all bacterial and viral targets as undetected, including COVID. RADIOLOGY: She had a right humerus and forearm, both without any acute findings. Chest x-ray, pelvis x-ray and CT of the chest per radiology interpretation revealed patchy airspace infiltrates in both upper lobes with confluent airspace infiltrates in the right lower lobe, likely infectious. Mild bronchitis, likely reactive mediastinal lymphadenopathy. There is note of cholelithiasis without acute cholecystitis. She had stable indeterminate pancreatic and left adrenal lesions. No acute findings in the chest, abdomen and pelvis as noted other than above. Please see those reports for details. ASSESSMENT: 1. Multifocal pneumonia concerning for COVID-19 infection with elevated markers, including elevated D-dimer, C reactive protein with the patient having underlying respiratory illnesses, including asthma and other co-morbidities with diabetes. 2. Acute exacerbation of asthma secondary to #1. 3. Diabetes mellitus without signs of diabetic ketoacidosis, poorly controlled, likely secondary to underlying infectious process due to #1. 4. Multi electrolyte imbalance secondary to hyperglycemia. 5. Nausea and vomiting with findings on CT for cholelithiasis without acute cholecystitis with the patient not showing any clinical tenderness or any type of acute cholecystitis. At this point, etiology is uncertain, possibly related to previous undergoing COVID infection with ultrasound of the gallbladder pending. 6. History of hypertension, initially uncontrolled and showing mild hypertension on admission. 7. Sepsis secondary to #1 with an elevated lactic acid. 8. Metabolic acidosis secondary to underlying infectious process, including #1 and exacerbated by hyperglycemia. 9. History of type 2 diabetes mellitus with poor control secondary to #1, insulin dependent. PLAN: Ms. Rice is going to be admitted in the airborne isolation for concerns for COVID pneumonia, although she was negative initially. Given that she has multiple markers that are indicative of possible COVID infection, including findings on CT as well as multiple markers with D-dimer elevated, C reactive protein, we are going to treat her aggressively with antibiotics including azithromycin and Unasyn with concerns for the multifocal pneumonia. She will be on Lovenox given the elevated D-dimer 1 mg per kg every 12 hours. She will be on Decadron 6 mg daily. Will have her on inhaled Albuterol scheduled and p.r.n. with aggressive pulmonary hygiene. Will follow labs as per protocol. Will go ahead and retest her for COVID-19 in 48 hours and if she is negative at that time I think she will be safe to move to a standard room, but we will continue with current treatment plan. I am not sure if the patient has been exposed within the last 2 weeks, but her symptoms certainly do fall into those parameters, although she is denying any actual exposure that she knows of, although she has been active and out in the community, and there are multiple cases of COVID in our community as well as in the hospital the past month. Again, will follow labs closely. Will treat aggressively for the pneumonia and work to control her blood sugars with sliding scale insulin. I will keep her NPO overnight and do a gallbladder ultrasound in the morning. Once she is clear of that and she can tolerate food, will start her on clear liquids and advance as tolerated. I did request a consultation with Dr. Levy. He is going to review the CT and do a consultation in the morning after admission. Until we can transition to outpatient management, I do anticipate her length of stay to be at least 2 to 3 days, will continue to monitor and treat as needed. #[id number] [facility]
[2020-05-10] MEDS ORDERED: MAGNESIUM SULFATE PREMIX 2GM 2 GM in PREMIX BAG 1 BAG IVPB ONE (23:29)
[2020-05-10] MEDS ORDERED: AZITHROMYCIN IV 500 MG VIAL IVPB ONE (23:40)
[2020-05-10] MEDS ORDERED: MAGNESIUM SULFATE PREMIX 2GM 50 ML IVPB ONE (23:41)
[2020-05-10] MEDS ORDERED: SODIUM CHLORIDE 0.9% 250ML 250 ML ONE (23:41)
[2020-05-10] MEDS: AZITHROMYCIN IV 500 MG in SODIUM CHLORIDE 0.9% 250ML 250 ML IVPB SCH (23:47)
[2020-05-11] MEDS ORDERED: INSULIN LISPRO 100 UNITS/ML PEN SUBCU SCH
[2020-05-11] MEDS ORDERED: ENOXAPARIN SODIUM 60 MG/0.6 ML SYG SUBCU ONE ×2 (00:21→19:49)
[2020-05-11] MEDS ORDERED: ALBUTEROL INHALER 64 PUFF/8GM INH PRN (00:23)
[2020-05-11] MEDS: INSULIN LISPRO 100 UNITS/ML PEN SUBCU SCH ×5 (00:31→23:20)
[2020-05-11] MEDS: ALBUTEROL INHALER 64 PUFF/8GM INH SCH ×5 (04:00→20:45)
[2020-05-11] MEDS ORDERED: SODIUM CHL 0.9% 100ML MINI-BAG 100 ML IVPB ONE ×3 (04:13→19:50)
[2020-05-11] MEDS ORDERED: AMPICILLIN & SULBACTAM SODIUM 3 GM VIAL ONE ×3 (04:13→19:49)
[2020-05-11] MEDS: AMPICILLIN & SULBACTAM SODIUM 3 GM in SODIUM CHL 0.9% 100ML MINI-BAG 100 ML IVPB SCH ×4 (04:25→22:01)
[2020-05-11] MEDS: PANTOPRAZOLE SODIUM IV 40 MG VIAL IV SCH (06:01)
[2020-05-11] MEDS ORDERED: PANTOPRAZOLE SODIUM IV 40 MG VIAL IV SCH (06:30)
[2020-05-11] MEDS ORDERED: IPRATROPIUM/ALBUTEROL 3 ML VIAL INH SCH ×2 (08:00)
[2020-05-11] MEDS ORDERED: DEXAMETHASONE INJ 10 MG/ML VIAL ONE (08:56)
[2020-05-11] MEDS: DEXAMETHASONE INJ 10 MG/ML VIAL IV SCH (08:59)
[2020-05-11] MEDS: ENOXAPARIN SODIUM 60 MG/0.6 ML SYG SUBCU SCH ×2 (09:03→20:34)
--- NOTE | 2020-05-11 12:37 | US ---
EXAM DESCRIPTION: Gall Bladder: ULTRASOUND. CLINICAL HISTORY: Biliary colic, N/V , Cholelithiasis on CT COMPARISON: CT abdomen and pelvis with contrast May 10 TECHNIQUE: Transabdominal scanning: Olea-scale and Doppler modes. FINDINGS: Gallbladder: Contains multiple echogenic stones which are shadowing most of the gallbladder. No fluid around the gallbladder. No wall thickening. 2.5 mm. Non-tender with transducer pressure. Common bile duct: caliber 3.3 mm within normal limits. Liver: normal echogenicity; contour liver capsule smooth where seen. No fluid around the liver. Intrahepatic biliary ducts normal caliber. Doppler hepatopedal flow portal vein.. 1.3 mm normal caliber. Long axis right lobe 16.1 cm. Pancreas: normal size Normal echogenicity. Duct not seen. Aorta: 1.5 cm proximal normal caliber. Right kidney: long axis is 9.9 cm; volume 133.4 mL.. Normal cortical echogenicity and thickness. No echogenic stones and no hydronephrosis. IMPRESSION: 1. Cholelithiasis with no inflammatory changes. Normal wall thickness and no fluid and nontender. Normal caliber common bile duct. 2. Liver and pancreas are negative. No ascites. 3. Right kidney unremarkable. Normal caliber of the proximal abdominal aorta. Electronically signed by: Israel Milton MD 05/11/2020 12:35 PM CDT
[2020-05-11] MEDS ORDERED: AZITHROMYCIN IV 500 MG VIAL IVPB ONE (19:49)
[2020-05-11] MEDS ORDERED: SODIUM CHLORIDE 0.9% 250ML 250 ML ONE (19:49)
[2020-05-11] MEDS ORDERED: SODIUM CHLORIDE 0.9% (FLUSH) 10 ML SYG ONE (19:50)
--- NOTE | 2020-05-11 20:45 | PN ---
SUPERVISING PHYSICIAN: Joni Song M.D. DATE: 05/11/20 SUBJECTIVE: The patient looks much better this morning. She still is exhausted but clinically appears to be improving. She still has a cough. Lung sounds are significantly coarse, but she has not had any significant shortness of breath. No chest pains. She remains afebrile. OBJECTIVE: VITAL SIGNS: Temperature 98.5, pulse 83, blood pressure 128/76, respirations 16, satting 95% on room air. GENERAL: The patient is resting comfortably. Does not appear to be in any distress. CHEST: Lung sounds continue to sound coarse throughout, more prominent on the right than left and certainly more prominent on the posterolateral aspect on the right but no obvious wheezing. HEART: Regular rate and rhythm. ABDOMEN: Soft, non-tender. Positive bowel sounds. EXTREMITIES: Without edema. NEUROLOGIC: She is alert and oriented times three. LABORATORY: White count 11,400, hemoglobin 10.7, hematocrit 32.4, platelet count 170,000. Differential does show a left shift. Coagulation studies show D-dimer is now down to 969, fibrinogen is up a little bit to 790. PTT remains normal. Chemistries show a normal creatinine at 1.08 with electrolytes all within normal limits. Blood sugar ranges between 183 and 252. Calcium 8.7, magnesium 2.1. Total bilirubin is a little elevated at 1.6. Liver functions are all within normal limits. C reactive protein did go up to 19.4. MICROBIOLOGY: Blood cultures remain negative. RADIOLOGY: Gallbladder ultrasound this morning per radiology interpretation shows cholelithiasis with no inflammatory changes. No wall thickness or fluid and non-tender. Normal caliber bile duct. Liver and pancreas were negative. No ascites. Right kidney appeared unremarkable. Normal caliber of the proximal abdominal aorta. ASSESSMENT: 1. Multifocal pneumonia concerning for COVID-19 infection with elevated markers, including elevated D-dimer, C reactive protein with the patient having underlying respiratory illnesses, including asthma and other co-morbidities with diabetes. 2. Acute exacerbation of asthma secondary to #1. 3. Diabetes mellitus without signs of diabetic ketoacidosis, poorly controlled, likely secondary to underlying infectious process due to #1. 4. Multi electrolyte imbalance secondary to hyperglycemia. 5. Nausea and vomiting with findings on CT for cholelithiasis without acute cholecystitis with the patient not showing any clinical tenderness or any type of acute cholecystitis. At this point, etiology is uncertain, possibly related to previous undergoing COVID infection with ultrasound of the gallbladder pending. 6. History of hypertension, initially uncontrolled and showing mild hypertension on admission. 7. Sepsis secondary to #1 with an elevated lactic acid. 8. Metabolic acidosis secondary to underlying infectious process, including #1 and exacerbated by hyperglycemia. 9. History of type 2 diabetes mellitus with poor control secondary to #1, insulin dependent. PLAN: Will continue with treatment plan at this point with Unasyn, azithromycin, Decadron, breathing treatments and weight-based Lovenox. Will hold off fluids at this point. Restart medications in the morning as appropriate to care. Will go ahead and retest her for COVID again tomorrow. Should she show negative, certainly will move her to a normal non-isolation room. Again, will continue to treat aggressively. Until we can transition her to outpatient management will continue to monitor and treat as needed. #[id number] [facility]
[2020-05-11] MEDS ORDERED: LISINOPRIL 10 MG TAB PO SCH (22:00)
[2020-05-11] MEDS: AZITHROMYCIN IV 500 MG in SODIUM CHLORIDE 0.9% 250ML 250 ML IVPB SCH (23:09)
[2020-05-12] MEDS: ALBUTEROL INHALER 64 PUFF/8GM INH SCH ×6 (01:00→20:48)
[2020-05-12] MEDS ORDERED: DEXTROSE 50% 25 GM/50 ML SYG IV PRN ×2 (01:53→01:59)
[2020-05-12] MEDS ORDERED: GLUCAGON INJ 1 MG VIAL SUBCU PRN ×2 (01:53→01:59)
[2020-05-12] MEDS ORDERED: AMPICILLIN & SULBACTAM SODIUM 3 GM VIAL ONE ×5 (04:16→20:10)
[2020-05-12] MEDS ORDERED: PANTOPRAZOLE SODIUM IV 40 MG VIAL ONE ×2 (04:16→20:12)
[2020-05-12] MEDS ORDERED: SODIUM CHL 0.9% 100ML MINI-BAG 0 ML IVPB ONE ×2 (04:17→04:18)
[2020-05-12] MEDS: AMPICILLIN & SULBACTAM SODIUM 3 GM in SODIUM CHL 0.9% 100ML MINI-BAG 100 ML IVPB SCH ×4 (04:30→22:22)
[2020-05-12] MEDS: PANTOPRAZOLE SODIUM IV 40 MG VIAL IV SCH (06:38)
[2020-05-12] MEDS ORDERED: ENOXAPARIN SODIUM 60 MG/0.6 ML SYG SUBCU ONE ×2 (08:01→20:10)
[2020-05-12] MEDS ORDERED: DEXAMETHASONE INJ 10 MG/ML VIAL ONE (08:01)
[2020-05-12] MEDS ORDERED: ALLOPURINOL 300 MG TAB PO ONE (08:01)
[2020-05-12] MEDS ORDERED: MONTELUKAST 10 MG TAB ONE (08:01)
[2020-05-12] MEDS ORDERED: ATORVASTATIN 20 MG TAB PO ONE (08:02)
[2020-05-12] MEDS ORDERED: FUROSEMIDE 40 MG TAB ONE (08:02)
[2020-05-12] MEDS ORDERED: SODIUM CHL 0.9% 100ML MINI-BAG 100 ML IVPB ONE ×4 (08:02→16:37)
[2020-05-12] MEDS: INSULIN LISPRO 100 UNITS/ML PEN SUBCU SCH ×6 (08:58→20:51)
[2020-05-12] MEDS: DEXAMETHASONE INJ 10 MG/ML VIAL IV SCH (08:58)
[2020-05-12] MEDS: INSULIN DETEMIR 100 UNITS/ML PEN SUBCU SCH ×2 (08:59→20:41)
[2020-05-12] MEDS: ENOXAPARIN SODIUM 60 MG/0.6 ML SYG SUBCU SCH ×2 (08:59→20:40)
[2020-05-12] MEDS: ATORVASTATIN 20 MG TAB PO SCH (08:59)
[2020-05-12] MEDS: MONTELUKAST 10 MG TAB PO SCH (08:59)
[2020-05-12] MEDS: FUROSEMIDE 40 MG TAB PO SCH (08:59)
[2020-05-12] MEDS: ALLOPURINOL 300 MG TAB PO SCH (08:59)
[2020-05-12] MEDS: QUINAPRIL HCL PO SCH ×2 (08:59→20:50)
[2020-05-12] MEDS ORDERED: LISINOPRIL 10 MG TAB PO SCH (09:00)
[2020-05-12] MEDS ORDERED: LISINOPRIL 10 MG TAB PO ONE (10:12)
[2020-05-12] MEDS: NYSTATIN POWDER 15GM BTTL TOP SCH ×4 (11:02→20:40)
[2020-05-12] MEDS: NON-FORMULARY MEDICATION 1 EA MIS (Empagliflozin [Jardiance] 25 MG) PO SCH (14:33)
--- NOTE | 2020-05-12 19:18 | PN ---
SUPERVISING PHYSICIAN: Joni Song M.D. DATE: 05/12/20 SUBJECTIVE: The patient is doing much better today. She said her breathing is almost back to what she feels normal for her. I did test her again for COVID and it has been negative. She is going to be moved to a regular room. I did discuss that we will continue current plan of care and hopefully discharge her tomorrow. OBJECTIVE: VITAL SIGNS: Temperature 97.7, pulse 73, blood pressure 147/79, rate of 20 on respirations, saturations 95% on 2 liters nasal cannula. GENERAL: The patient is resting comfortably. Does not appear to be in any distress. CHEST: Lung sounds are much more clearer today. There is no obvious rales or rhonchi. No wheezing is noted. HEART: Regular rate and rhythm. ABDOMEN: Soft, non-tender. Positive bowel sounds. EXTREMITIES: Without edema. NEUROLOGIC: She is alert and oriented times three. LABORATORY STUDIES: White count 7,600 with a left shift. Hemoglobin 10.9, hematocrit 42.9. Coagulation studies show D-dimer is down to 951, fibrinogen is at 917. PTT is normal. Chemistries show blood sugar is still elevated ranging between 234 and 303. Sodium was 136 with a corrected 303 blood sugar, BUN 23, creatinine 0.84. C reactive protein 22.4 which is up from yesterday of 19.4. Troponin is less than 0.02. MICROBIOLOGY: Blood cultures remain negative after 48 hours. Repeat respiratory panel this morning showed that there was no detection of any viral or bacterial agents as tested. RADIOLOGY: No additional radiographic studies this morning. ASSESSMENT: 1. Multifocal pneumonia with still concerns for previous COVID-19 infection with a history of asthma and multiple comorbidities with continued elevated D-dimer and C reactive protein, although showing improvement with treatment. 2. Acute exacerbation of asthma secondary to #1. 3. Diabetes mellitus type 2 without any signs of diabetic ketoacidosis, but showing elevated blood sugars secondary to steroid therapy. 4. Group A Streptococcus pharyngitis. 5. Nausea and vomiting with history of cholelithiasis on CT but no acute cholecystitis with the patient now resolved showing no concerning symptoms. 6. Hypertension, stabilized. 7. Sepsis secondary to #1 improved with therapy. 8. Metabolic acidosis secondary to #1 exacerbated by hyperglycemia, resolved with treatment. PLAN: Will go ahead and continue with aggressive treatment since that she probably had a pneumonia secondary to a COVID infection that was negative by the time she presented to the Emergency Room. Keep her on Unasyn as I continue to rule out that she might have had an aspiration event and this then turned to nausea and vomiting, as well as azithromycin, Decadron and special treatment for COVID that she completed Lovenox given that she had a significantly elevated D- dimer. She still remains saline locked and she is taking oral adequate intake. She has been moved to a regular room and I would assess that we will hopefully be able to discharge her tomorrow to continue with outpatient management. Until then will continue to monitor and treat as needed. #[id number] [facility]
[2020-05-12] MEDS ORDERED: NYSTATIN POWDER 15GM BTTL TOP ONE (20:10)
[2020-05-12] MEDS ORDERED: AZITHROMYCIN IV 500 MG VIAL IVPB ONE (20:10)
[2020-05-12] MEDS ORDERED: SODIUM CHLORIDE 0.9% 250ML 250 ML ONE (20:11)
[2020-05-12] MEDS ORDERED: SODIUM CHLORIDE 0.9% (FLUSH) 10 ML SYG ONE (20:11)
[2020-05-12] MEDS: AZITHROMYCIN IV 500 MG in SODIUM CHLORIDE 0.9% 250ML 250 ML IVPB SCH (23:20)
[2020-05-13] MEDS: ALBUTEROL INHALER 64 PUFF/8GM INH SCH ×3 (00:30→08:24)
[2020-05-13] MEDS ORDERED: ACETAMINOPHEN 325 MG TAB ONE (01:26)
[2020-05-13] MEDS ORDERED: AMPICILLIN & SULBACTAM SODIUM 3 GM VIAL ONE ×2 (01:27→10:11)
[2020-05-13] MEDS ORDERED: SODIUM CHLORIDE 0.9% 100ML 100 ML IVPB ONE (01:28)
[2020-05-13] MEDS ORDERED: SODIUM CHLORIDE 0.9% (FLUSH) 10 ML SYG ONE (01:28)
[2020-05-13] MEDS ORDERED: PANTOPRAZOLE SODIUM IV 40 MG VIAL ONE (04:30)
[2020-05-13] MEDS: AMPICILLIN & SULBACTAM SODIUM 3 GM in SODIUM CHL 0.9% 100ML MINI-BAG 100 ML IVPB SCH ×3 (04:33→10:15)
[2020-05-13] MEDS: PANTOPRAZOLE SODIUM IV 40 MG VIAL IV SCH (05:58)
[2020-05-13] MEDS: INSULIN LISPRO 100 UNITS/ML PEN SUBCU SCH ×4 (07:33→11:56)
[2020-05-13] MEDS ORDERED: DEXAMETHASONE INJ 10 MG/ML VIAL ONE (07:53)
[2020-05-13] MEDS ORDERED: ENOXAPARIN SODIUM 60 MG/0.6 ML SYG SUBCU ONE (07:53)
[2020-05-13] MEDS ORDERED: ALLOPURINOL 300 MG TAB PO ONE (07:53)
[2020-05-13] MEDS ORDERED: MONTELUKAST 10 MG TAB ONE (07:53)
[2020-05-13] MEDS ORDERED: ATORVASTATIN 20 MG TAB PO ONE (07:54)
[2020-05-13] MEDS ORDERED: FUROSEMIDE 40 MG TAB ONE (07:54)
--- NOTE | 2020-05-13 08:11 | RAD ---
EXAM DESCRIPTION: Chest,1 View CLINICAL HISTORY: 74 years Female, PNA possible COVID COMPARISON: May 10, 2020 Findings: One view(s)/radiograph(s) Cardiac silhouette and pulmonary vasculature are within normal limits. No pneumothorax. No pleural effusion. Increasing patchy multifocal bilateral infiltrates most notably in the right midlung. No acute osseous abnormality. IMPRESSION: Increased patchy multifocal bilateral infiltrates. Electronically signed by: Jaquan Delong MD 05/13/2020 8:09 AM CDT
[2020-05-13] MEDS: DEXAMETHASONE INJ 10 MG/ML VIAL IV SCH (09:02)
[2020-05-13] MEDS: MONTELUKAST 10 MG TAB PO SCH (09:03)
[2020-05-13] MEDS: ATORVASTATIN 20 MG TAB PO SCH (09:03)
[2020-05-13] MEDS: SODIUM CHLORIDE 0.9% (FLUSH) 10 ML SYG IV PRN (09:03)
[2020-05-13] MEDS: ENOXAPARIN SODIUM 60 MG/0.6 ML SYG SUBCU SCH (09:03)
[2020-05-13] MEDS: QUINAPRIL HCL PO SCH (09:04)
[2020-05-13] MEDS: ALLOPURINOL 300 MG TAB PO SCH (09:04)
[2020-05-13] MEDS: FUROSEMIDE 40 MG TAB PO SCH (09:04)
[2020-05-13] MEDS: NYSTATIN POWDER 15GM BTTL TOP SCH (09:05)
[2020-05-13] MEDS: NON-FORMULARY MEDICATION 1 EA MIS (Empagliflozin [Jardiance] 25 MG) PO SCH (09:07)
[2020-05-13] MEDS: INSULIN DETEMIR 100 UNITS/ML PEN SUBCU SCH (09:08)
[2020-05-13] MEDS ORDERED: FLUCONAZOLE 150 MG TAB PO ONE (09:39)
[2020-05-13] MEDS ORDERED: FLUCONAZOLE 150 MG TAB ONE (09:52)
[2020-05-13] MEDS ORDERED: SODIUM CHL 0.9% 100ML MINI-BAG 100 ML IVPB ONE (10:11)
[2020-05-13 14:00] VITALS: BP 156/71; TEMP 97.4; O2SAT 96
[2020-05-13] MEDS ORDERED: IV SET AND CAP CHANGE INJ INJ SCH (22:30)
--- NOTE | 2020-05-14 11:34 | DS ---
SUPERVISING PHYSICIAN: Jose Song MD ADMISSION DIAGNOSIS: 1. Multifocal pneumonia concerning for COVID-19 infection with elevated markers, including elevated D-dimer, C reactive protein with the patient having underlying respiratory illnesses, including asthma and other co-morbidities with diabetes. 2. Acute exacerbation of asthma secondary to #1. 3. Diabetes mellitus without signs of diabetic ketoacidosis, poorly controlled, likely secondary to underlying infectious process due to #1. 4. Multi electrolyte imbalance secondary to hyperglycemia. 5. Nausea and vomiting with findings on CT for cholelithiasis without acute cholecystitis with the patient not showing any clinical tenderness or any type of acute cholecystitis. At this point, etiology is uncertain, possibly related to previous undergoing COVID infection with ultrasound of the gallbladder pending. 6. History of hypertension, initially uncontrolled and showing mild hypertension on admission. 7. Sepsis secondary to #1 with an elevated lactic acid. 8. Metabolic acidosis secondary to underlying infectious process, including #1 and exacerbated by hyperglycemia. 9. History of type 2 diabetes mellitus with poor control secondary to #1, insulin dependent. DISCHARGE DIAGNOSIS: 1. Multifocal pneumonia with still concerns for previous COVID-19 infection with a history of asthma and multiple comorbidities with continued elevated D-dimer and C reactive protein, although showing improvement with treatment. 2. Sepsis secondary to #1 with admission lactic acid elevated and showed good response to treatment. 3. Acute exacerbation of asthma secondary to #1. 4. Diabetes mellitus, type 2, without any signs of diabetic ketoacidosis, but showing elevated blood sugars secondary to steroid therapy. 5. Group A Streptococcus pharyngitis. 6. Nausea and vomiting with history of cholelithiasis on CT but no acute cholecystitis with the patient now resolved showing no concerning symptoms. 7. Hypertension, stabilized, with a grade 1 diastolic dysfunction with current echocardiogram showing ejection fraction greater 60-65%. 8. Sepsis secondary to #1 improved with therapy. 9. Metabolic acidosis secondary to #1 exacerbated by hyperglycemia, resolved with treatment. REASON FOR HOSPITALIZATION: Ms. Rice is a 74 year-old female patient that presented to the Emergency Room last night with a past medical history of diabetes, asthma and a previous cerebrovascular accident. She was brought to the Emergency Room by her daughter who endorses that she has been having some nausea and vomiting for the last 2 days which worsened acutely last night. She has reported that she actually has had 10 episodes of dark to green emesis over the last 48 hours as well as 3 or 4 episodes of watery type diarrhea. She is also endorsing that she has had a very poor appetite and overall poor intake with generalized weakness. She denies any actual fevers or abdominal pain. She is endorsing that she has had a chronic cough that is productive with some green sputum over the last several weeks, but denied any sore throat or nasal congestion. She is diabetic and notes that her blood sugars have been elevated in the last 24 to 48 hours with the last one before she came into the Emergency Room around 384. She normally takes around 80 units of insulin a day and actually took 40 units in the morning and 20 units before she presented to the Emergency Room. Laboratory studies showed she had a white count of 10,400 with a left shift. Chemistries showed a blood sugar of 459 with sodium 131 corrected to 135 with potassium 3.3. Anion gap was normal at 15, creatinine normal at 1.0. Initial lactic acid was elevated at 3.3. She was given fluids and a repeat of that showed that it was responding to treatment and was down to 2.7 two hours post treatment. Liver functions were all within normal limits as well as lipase and amylase. Urinalysis showed initially 5 to 10 RBCs, with 3 to 5 WBCs, rare bacteria. On dipstick revealed a small amount of blood,, 500 glucose, 100 protein but negative ketones. She did have a Group A Strep that was positive. Her respiratory panel showed that all viral and bacterial targets tested were not detected, including COVID-19. Her vital signs on admission to the Emergency Room showed that she was actually hypertensive with a blood pressure of 217/92, heart rate 117, low grade temperature 99, satting 92% initially on room air. She was given fluids for initial treatment course and did show desaturation acutely into the mid 80s requiring placement on O2 with nasal cannula. A chest x-ray was completed with questionable evidence consisting of metastatic neoplasm of the chest. This was then followed-up with a CT of the abdomen as well as pelvis and chest, and on the radiology report the radiologist notes patchy airspace infiltrates in both upper lobes and confluent airspace infiltrates in the right lower lobe, likely infectious with some mild bronchitis. There was note of cholelithiasis but no acute cholecystitis. Also of note after interviewing the patient, the patient had sustained a fall at home and x-rays were done of her right humerus and forearm, all without any acute findings of a fracture or dislocation. Given the concerns for developing pneumonia, the patient is going to be admitted for treatment of community acquired pneumonia. Although her COVID testing is negative, additional testing was completed after admission as the patient clinically had clinical signs of possible COVID infection with her coagulation studies showing an elevated D- dimer at 1730, fibrinogen at 759 with a C reactive protein of 16.5. Cardiac enzymes were showing negative for troponin as well as CPK within normal limits. She is now going to be admitted for initiation of treatment of concern for questionable COVID pneumonia. She was admitted in stable condition into airborne isolation on the [facility] floor. LABORATORY: White count on discharge was 9,700, hemoglobin 11.1, hematocrit 33.4, platelet count 189,000. Differential does show a continued left shift, but no bands. Coagulation studies showed normal PT, PTT on discharge. D-dimer initially was 1730 and prior to discharge, was down to 951. Fibrinogen was 917 at discharge. Chemistries on discharge showed normal electrolytes with potassium 3.3, creatinine 0.93. Blood sugars were down to 161 to 174 range. Calcium normal at 9.2. Magnesium normal at 2.2. On admission, she did have elevated blood sugars in the 400s. Initial lactic acid was 3.3, hemoglobin A1c was 11.3. C-reactive protein on admission was 16.5 and was still showing elevation on discharge of 22.4. Amylase and lipase were both normal. MICROBIOLOGY: Blood cultures remain negative after 3 days. She had two respiratory panels that were both negative for COVID and all other viral and bacterial targets as tested. RADIOLOGY: Due to her fall, she had several x-rays of her upper extremities without any acute findings. CT of the pelvis and abdomen with contrast showed cholelithiasis without cholecystitis. There was note of airspace opacity and infiltrates in both upper lobes with confluent airspace infiltrates in the right lower lobe. There was note of stable indeterminate pancreatic and left adrenal lesions. No other findings. Please see those reports for details. Gallbladder ultrasound showed cholelithiasis without inflammatory changes, no wall thickening, nontender on exam. Normal caliber of the common bile duct. Liver and pancreas were noted to be within normal limits. Please see those reports for details. Final chest x-ray on day of discharge showed increased opacity, multifocal bilateral infiltrates. Echocardiogram showed a left ventricular ejection fraction of 60-65% with a grade 1 diastolic dysfunction. HOSPITAL COURSE: Ms. Rice was admitted for concern initially for COVID pneumonia although her swabs were both negative 48 hours apart. She did have elevated D-dimer and other inflammatory markers as well as x-ray was consistent with findings seen with COVID pneumonia. Given those findings, she was treated aggressively, started on weight based Lovenox. There was also concern since she had been having some nausea and vomiting of whether she might have had some aspiration events. Therefore, she was treated with Unasyn as well as azithromycin. She was also started on Decadron. Her blood sugars were finally stabilized as she did come in quite uncontrolled which was probably due to the underlying infectious process. She did show good response to treatment. She was afebrile with vital signs showing oxygen saturation 96% on room air, blood pressure stabilized at 156/71, heart rate 74. It was felt she had clinical improved to the point that she was safe to discharge home to continue with outpatient management and followup with Dr. Henriquez after discharge. PLAN: Ms. Rice was discharged on 05/13/20 with instructions to followup with Dr. Henriquez as scheduled in one to two weeks. I believe she has a scheduled appointment on 05/21/20, but she is to confirm that at discharge. She is to resume her previous medications as directed. She was given ER warnings to return to the ER should she have any concerning symptoms or call Dr. Henriquez's office. Diet was diabetic diet as tolerated. She was to monitor blood sugars while on steroids and continue current treatment course. MEDICATIONS ON DISCHARGE: 1. Align 4 mg twice daily, #60, no refills. 2. Augmentin 875 mg twice daily, #20, for concern for aspiration pneumonia. 3. Diflucan 150 mg daily #3, for some localized candidal infection from complications from the steroids and antibiotics. 4. Anticoagulation therapy with Eliquis 5 mg twice daily for 28 days, #56, samples provided. 5. Prednisone tapering 10 mg tablets, #30. All other medications prior to hospital were continued. DISPOSITION: The patient was discharged home. CONDITION ON DISCHARGE: Stable and improving. #[id number] [facility]
== END 2020-05-13 13:40 | disposition home or self-care (01) | DRG 871 ==
LOC: ER 15:57 → MS 22:28 → UNDOADMOB 22:31 → MS 05-11 00:42 → INTOOBSV 05-11 00:42 → OBSVTOIN 05-11 00:42
PROVIDERS: ADMIT Nurse Practitioner Family; ATTEND Nurse Practitioner Family
DX: A41.89 Other specified sepsis (principal); U07.1 COVID-19; J12.89 Other viral pneumonia; J45.901 Unspecified asthma with (acute) exacerbation; E87.2 Acidosis; J69.0 Pneumonitis due to inhalation of food and vomit; I10 Essential (primary) hypertension; B95.0 Streptococcus, group A, as the cause of diseases classified elsewhere; E78.5 Hyperlipidemia, unspecified; E11.65 Type 2 diabetes mellitus with hyperglycemia; B37.9 Candidiasis, unspecified; K80.20 Calculus of gallbladder without cholecystitis without obstruction; J02.0 Streptococcal pharyngitis; Z79.4 Long term (current) use of insulin; Z79.51 Long term (current) use of inhaled steroids; Z86.73 Personal history of transient ischemic attack (TIA), and cerebral infarction without residual deficits; Z60.2 Problems related to living alone; Z91.81 History of falling

== ENCOUNTER → 2020-06-21 | Outpatient (CLI) | payer OTHER | LOC: BFHH 09:59 | PROVIDERS: ATTEND Family Medicine | DX: J18.9 Pneumonia, unspecified organism (principal); E11.65 Type 2 diabetes mellitus with hyperglycemia; J45.21 Mild intermittent asthma with (acute) exacerbation; N39.0 Urinary tract infection, site not specified; I11.9 Hypertensive heart disease without heart failure; M62.81 Muscle weakness (generalized) ==

== ENCOUNTER → 2020-08-13 | Outpatient (CLI) | payer MEDICARE, OTHER | LOC: BFHH 11:02 | PROVIDERS: ATTEND Family Medicine | DX: R30.0 Dysuria (principal) ==